=== PATIENT | female | born 1940 | race Caucasian/White ===

== ENCOUNTER 2016-08-02 09:31 | Outpatient (CLI) | payer MEDICARE, BC | END 2016-08-02 09:32 | disposition home or self-care (01) | DX: E78.5 Hyperlipidemia, unspecified (principal); E55.9 Vitamin D deficiency, unspecified; I10 Essential (primary) hypertension; E03.9 Hypothyroidism, unspecified; M17.12 Unilateral primary osteoarthritis, left knee; L40.9 Psoriasis, unspecified; R32 Unspecified urinary incontinence ==

== ENCOUNTER 2017-03-30 09:43 | Outpatient (CLI) | payer MEDICARE, BC ==
[2017-03-30 17:44] LABS: BUN - BLOOD UREA NITROGEN 15 mg/dL (6-20); CARBON DIOXIDE - CO2 27 mmol/L (21-32); CHLORIDE 104 mmol/L (101-111); CHOL/HDL RATIO 3.3 (<4.4); CHOLESTEROL 220 mg/dL; CREATININE 0.8 mg/dL (0.4-1.0); GFR - MDRD 70 (>89); GLUCOSE 82 mg/dL (70-100); HDL CHOLESTEROL 67 mg/dL; POTASSIUM 4.4 mmol/L (3.5-5.0); SODIUM 140 mmol/L (135-145); TRIGLYCERIDES 93 mg/dL; VLDL CHOLESTEROL 19 mg/dL
== END 2017-03-30 09:44 | disposition home or self-care (01) ==
LOC: LAB.F 09:43
PROVIDERS: ATTEND Internal Medicine
DX: E78.5 Hyperlipidemia, unspecified (principal); E03.9 Hypothyroidism, unspecified; I10 Essential (primary) hypertension; E55.9 Vitamin D deficiency, unspecified
CPT/HCPCS: 36415; 80048; 80061; 84443

== ENCOUNTER 2017-06-07 10:29 | Outpatient (CLI) | payer MEDICARE, OTHER ==
[2017-06-07 18:09] LABS: CHOL/HDL RATIO 1.8 (<4.4); CHOLESTEROL 128 mg/dL; HDL CHOLESTEROL 70 mg/dL; LDL CHOLESTEROL,CALCULATED 47 mg/dL; LDL/HDL RATIO 0.7 (<4.4); VLDL CHOLESTEROL 11 mg/dL
[2017-06-07 18:11] LABS: THYROID STIMULATING HORMONE 7.65 uIU/mL (0.34-5.60)
[2017-06-07 18:13] LABS: FREE T4 (FREE THYROXINE) 0.86 ng/dL (0.58-1.64)
== END 2017-06-07 10:30 | disposition home or self-care (01) ==
LOC: LAB.F 10:29
PROVIDERS: ATTEND Internal Medicine
DX: Z00.00 Encounter for general adult medical examination without abnormal findings (principal); E78.5 Hyperlipidemia, unspecified; I10 Essential (primary) hypertension; E03.9 Hypothyroidism, unspecified; M17.12 Unilateral primary osteoarthritis, left knee; L40.9 Psoriasis, unspecified; H91.90 Unspecified hearing loss, unspecified ear; R32 Unspecified urinary incontinence; E55.9 Vitamin D deficiency, unspecified
CPT/HCPCS: 36415; 80061; 84439; 84443; 84481

== ENCOUNTER 2017-09-07 10:45 | Outpatient (CLI) | payer MEDICARE, OTHER ==
--- NOTE | 2017-09-08 12:05 | Mammography Report ---
DIGITAL SCREENING MAMMOGRAM: 09/07/2017 CLINICAL INDICATION: A 76-year-old, for screening. COMPARISON: 04/2016. TECHNIQUE: Routine CC and MLO projections were obtained of the breasts. FINDINGS: The breasts demonstrate scattered fibroglandular densities bilaterally. Coarse, typically benign calcifications are present. Postoperative changes in the left axilla are stable. No suspicious masses, clustered microcalcifications or regions of architectural distortion are identified. IMPRESSION: BENIGN FINDINGS. RECOMMENDATION: ROUTINE ANNUAL SCREENING UNLESS OTHERWISE CLINICALLY INDICATED. BIRADS CATEGORY 2-BENIGN FINDINGS. STANDARD QUALIFYING STATEMENTS: 1. This examination was reviewed with the aid of Computer-Aided Detection (CAD). 2. A negative or benign imaging report should not delay biopsy if clinically suspicious findings are present. Consider surgical consultation if warranted. More than 5% of cancers are not identified by imaging. 3. Dense breasts may obscure an underlying neoplasm. TD: 09/08/2017 12:04
== END 2017-09-07 10:46 | disposition home or self-care (01) ==
LOC: DI.S 10:45
PROVIDERS: ATTEND Internal Medicine
DX: Z12.31 Encounter for screening mammogram for malignant neoplasm of breast (principal)
CPT/HCPCS: 77067

== ENCOUNTER 2017-09-14 10:51 | Outpatient (CLI) | payer MEDICARE, OTHER ==
[2017-09-14 17:52] LABS: BILIRUBIN,URINE NEGATIVE (NEGATIVE); GLUCOSE, URINE (UA) NEGATIVE (NEGATIVE); KETONES,URINE (UA) NEGATIVE (NEGATIVE); LEUKOCYTE ESTERASE, URINE SMALL (NEGATIVE); NITRITE,URINE NEGATIVE (NEGATIVE); OCCULT BLOOD,URINE MODERATE (NEGATIVE); PROTEIN,URINE 30 mg/dL (NEGATIVE); UROBILINOGEN,URINE 0.2 (NORMAL) E.U./dL (NORMAL)
[2017-09-14 18:03] LABS: CLARITY,URINE HAZY (CLEAR)
[2017-09-14 19:31] LABS: BACTERIA,URINE Moderate /HPF (None Seen); SQUAMOUS EPITHELIAL CELL,UR MOD Squamous (<= Few); WBC CLUMPS,URINE PRESENT
[2017-09-15 17:44] LABS: BASOPHILS # (AUTO) 0.1 10^3/uL (0.0-0.1); BASOPHILS % (AUTO) 1.2 %; EOSINOPHILS # (AUTO) 0.3 10^3/uL (0.0-0.7); EOSINOPHILS % (AUTO) 5.6 %; HGB - HEMOGLOBIN 11.7 g/dL (12.0-16.0); LYMPHOCYTES # (AUTO) 0.8 10^3/uL (1.5-3.5); LYMPHOCYTES % (AUTO) 14.9 %; MEAN CORPUSCULAR HEMOGLOBIN 32.6 pg (27.0-31.0); MEAN CORPUSCULAR VOLUME 98.6 fL (81.0-99.0); MEAN PLATELET VOLUME 9.4 fL (7.9-10.8); MONOCYTES # (AUTO) 0.6 10^3/uL (0.0-1.0); MONOCYTES % (AUTO) 11.5 %; NEUTROPHILS # (AUTO) 3.6 10^3/uL (1.5-6.6); NEUTROPHILS % (AUTO) 66.8 %; PLT - PLATELET COUNT 185 10^3/uL (130-450); RED CELL DISTRIBUTION WIDTH 13.3 % (12.0-15.0); WHITE BLOOD COUNT 5.3 x10^3/uL (4.8-10.8)
[2017-09-15 18:36] LABS: ALBUMIN 4.5 g/dL (3.2-5.5); ALBUMIN/GLOBULIN RATIO 1.8 (1.0-2.2); ALKALINE PHOSPHATASE 68 IU/L (42-121); ALT ALANINE AMINOTRANSFERASE 20 IU/L (10-60); AST ASPARTATE AMINOTRANSFERASE 25 IU/L (10-42); BILIRUBIN,TOTAL 0.4 mg/dL (0.2-1.0); BUN - BLOOD UREA NITROGEN 16 mg/dL (6-20); CALCIUM 9.4 mg/dL (8.5-10.3); CARBON DIOXIDE - CO2 27 mmol/L (21-32); CHLORIDE 103 mmol/L (101-111); CHOL/HDL RATIO 2.2 (<4.4); CHOLESTEROL 125 mg/dL; CREATININE 0.8 mg/dL (0.4-1.0); GFR - MDRD 70 (>89); GLUCOSE 76 mg/dL (70-100); HDL CHOLESTEROL 57 mg/dL; LDL CHOLESTEROL,CALCULATED 56 mg/dL; SODIUM 136 mmol/L (135-145); VLDL CHOLESTEROL 12 mg/dL
[2017-09-15 18:46] LABS: THYROID STIMULATING HORMONE 11.99 uIU/mL (0.34-5.60)
[2017-09-15 18:48] LABS: FREE T4 (FREE THYROXINE) 0.72 ng/dL (0.58-1.64)
== END 2017-09-14 23:59 ==
LOC: LAB.F 10:51
PROVIDERS: ATTEND Internal Medicine
DX: Z00.00 Encounter for general adult medical examination without abnormal findings (principal); N39.0 Urinary tract infection, site not specified; E78.5 Hyperlipidemia, unspecified; I10 Essential (primary) hypertension; E03.9 Hypothyroidism, unspecified; M17.12 Unilateral primary osteoarthritis, left knee; L40.9 Psoriasis, unspecified; M25.519 Pain in unspecified shoulder; R32 Unspecified urinary incontinence; E55.9 Vitamin D deficiency, unspecified; H91.90 Unspecified hearing loss, unspecified ear; R01.1 Cardiac murmur, unspecified
CPT/HCPCS: 36415; 80053; 80061; 81001; 81003; 83721; 84439; 84443; 84481; 85025; 87086

== ENCOUNTER 2017-09-15 13:19 | Outpatient (CLI) | payer MEDICARE, OTHER | END 2017-09-15 13:20 | disposition home or self-care (01) | LOC: RT.S 13:19 | PROVIDERS: ATTEND Internal Medicine | DX: Z00.00 Encounter for general adult medical examination without abnormal findings (principal); I10 Essential (primary) hypertension; N39.0 Urinary tract infection, site not specified; E78.5 Hyperlipidemia, unspecified; E03.9 Hypothyroidism, unspecified; M17.12 Unilateral primary osteoarthritis, left knee; L40.9 Psoriasis, unspecified; M25.519 Pain in unspecified shoulder; R32 Unspecified urinary incontinence; E55.9 Vitamin D deficiency, unspecified; H91.90 Unspecified hearing loss, unspecified ear; R01.1 Cardiac murmur, unspecified | CPT/HCPCS: 36415; 80053; 80061; 84439; 84443; 84481; 85025; 93005 ==

== ENCOUNTER 2018-01-25 15:05 | Outpatient (CLI) | payer MEDICARE, OTHER ==
[2018-01-25 18:21] LABS: BILIRUBIN,URINE NEGATIVE (NEGATIVE); GLUCOSE, URINE (UA) NEGATIVE (NEGATIVE); KETONES,URINE (UA) NEGATIVE (NEGATIVE); LEUKOCYTE ESTERASE, URINE SMALL (NEGATIVE); NITRITE,URINE NEGATIVE (NEGATIVE); OCCULT BLOOD,URINE NEGATIVE (NEGATIVE); PH,URINE 6.5 PH (5.0-7.5); PROTEIN,URINE NEGATIVE (NEGATIVE); UROBILINOGEN,URINE 0.2 (NORMAL) E.U./dL (NORMAL)
[2018-01-25 18:23] LABS: CLARITY,URINE CLEAR (CLEAR)
[2018-01-25 18:56] LABS: BACTERIA,URINE Moderate /HPF (None Seen); RBC,URINE None Seen /HPF (0-5); SQUAMOUS EPITHELIAL CELL,UR RARE Squamous (<= Few)
== END 2018-01-25 15:06 | disposition home or self-care (01) ==
LOC: LAB.F 15:05
PROVIDERS: ATTEND Internal Medicine
DX: R60.0 Localized edema (principal); R30.0 Dysuria; E78.5 Hyperlipidemia, unspecified; I10 Essential (primary) hypertension; E03.9 Hypothyroidism, unspecified; L40.9 Psoriasis, unspecified; M25.519 Pain in unspecified shoulder; R32 Unspecified urinary incontinence; E55.9 Vitamin D deficiency, unspecified
CPT/HCPCS: 81001; 81003; 87086

== ENCOUNTER 2018-03-20 09:59 | Outpatient (CLI) | payer MEDICARE, OTHER ==
[2018-03-20 18:25] LABS: BUN - BLOOD UREA NITROGEN 16 mg/dL (6-20); CALCIUM 9.5 mg/dL (8.5-10.3); CARBON DIOXIDE - CO2 28 mmol/L (21-32); CHLORIDE 103 mmol/L (101-111); CHOL/HDL RATIO 2.1 (<4.4); CHOLESTEROL 134 mg/dL; CREATININE 0.6 mg/dL (0.4-1.0); GFR - MDRD 97 (>89); GLUCOSE 81 mg/dL (70-100); HDL CHOLESTEROL 64 mg/dL; LDL CHOLESTEROL,CALCULATED 58 mg/dL; LDL/HDL RATIO 0.9 (<4.4); SODIUM 136 mmol/L (135-145); VLDL CHOLESTEROL 12 mg/dL
[2018-03-20 18:27] LABS: THYROID STIMULATING HORMONE 6.45 uIU/mL (0.34-5.60)
[2018-03-20 18:29] LABS: FREE T4 (FREE THYROXINE) 0.86 ng/dL (0.58-1.64)
== END 2018-03-20 10:00 | disposition home or self-care (01) ==
LOC: LAB.F 09:59
PROVIDERS: ATTEND Internal Medicine
DX: E78.5 Hyperlipidemia, unspecified (principal); L40.9 Psoriasis, unspecified; I10 Essential (primary) hypertension; E03.9 Hypothyroidism, unspecified; M25.519 Pain in unspecified shoulder; R32 Unspecified urinary incontinence; E55.9 Vitamin D deficiency, unspecified
CPT/HCPCS: 36415; 80048; 80061; 82306; 83721; 84439; 84443; 84481

== ENCOUNTER 2018-06-19 08:00 | Outpatient (CLI) | payer MEDICARE, OTHER ==
[2018-06-19 18:19] LABS: CALCIUM 9.5 mg/dL (8.5-10.3); CREATININE 0.6 mg/dL (0.4-1.0)
== END 2018-06-19 23:59 | disposition home or self-care (01) ==
LOC: LAB.F 08:00
PROVIDERS: ATTEND Internal Medicine
DX: Z00.00 Encounter for general adult medical examination without abnormal findings (principal); R30.0 Dysuria; E78.5 Hyperlipidemia, unspecified; I10 Essential (primary) hypertension; L40.9 Psoriasis, unspecified; M25.519 Pain in unspecified shoulder; R32 Unspecified urinary incontinence; E55.9 Vitamin D deficiency, unspecified
CPT/HCPCS: 36415; 80048

== ENCOUNTER 2018-09-20 13:32 | Outpatient (CLI) | payer MEDICARE, OTHER ==
--- NOTE | 2018-09-21 09:13 | Mammography Report ---
Reason: OTHER SCREENING MAMMOGRAM Procedure Date: 09/20/2018 Accession Number: [id number] / [id number] Procedure: KENNETH - Screening Mammo w/Quentin CPT Code: FULL RESULT: EXAM: Screening Mammo w/Quentin DATE: 09/20/2018 2:33 PM CLINICAL HISTORY: Screening encounter. History of left breast biopsy, excisional type with benign results. No reported risk factors. TECHNIQUE: (B) - Bilateral CC and MLO views were obtained. COMPARISON: 09/07/2017 and 04/28/2016. PARENCHYMAL PATTERN: (A) - The breast(s) demonstrate(s) scattered fibroglandular densities. FINDINGS: There are coarse typically benign calcifications. There are no suspicious masses, calcifications, or areas of distortion. IMPRESSION: Benign findings. BI-RADS category 2. RECOMMENDATION: (ANNUAL) - Recommend routine annual screening mammography. BI-RADS CATEGORY: (2) - Benign Findings. STANDARD QUALIFYING STATEMENTS: 1. This examination was not reviewed with the aid of Computer-Aided Detection (CAD). 2. A negative or benign imaging report should not preclude biopsy if clinically suspicious findings are present. 3. Dense breasts may obscure an underlying neoplasm. 4. This examination was reviewed with the aid of 3D breast imaging (tomosynthesis).
== END 2018-09-20 13:33 | disposition home or self-care (01) ==
LOC: DI 13:32
PROVIDERS: ATTEND Internal Medicine
DX: Z12.31 Encounter for screening mammogram for malignant neoplasm of breast (principal)
CPT/HCPCS: 77063; 77067

== ENCOUNTER 2019-04-17 11:24 | Outpatient (CLI) | payer MEDICARE, OTHER ==
[2019-04-17 17:18] LABS: BILIRUBIN,URINE NEGATIVE (NEGATIVE); GLUCOSE, URINE (UA) NEGATIVE (NEGATIVE); KETONES,URINE (UA) NEGATIVE (NEGATIVE); LEUKOCYTE ESTERASE, URINE SMALL (NEGATIVE); NITRITE,URINE POSITIVE (NEGATIVE); OCCULT BLOOD,URINE TRACE-INTA (NEGATIVE); PH,URINE 7.5 PH (5.0-7.5); PROTEIN,URINE NEGATIVE (NEGATIVE); UROBILINOGEN,URINE 0.2 (NORMAL) E.U./dL (NORMAL)
[2019-04-17 17:22] LABS: CLARITY,URINE HAZY (CLEAR)
[2019-04-17 17:31] LABS: BACTERIA,URINE Few /HPF (None Seen); RBC,URINE 0-5 /HPF (0-5); SQUAMOUS EPITHELIAL CELL,UR FEW Squamous (<= Few); WBC CLUMPS,URINE PRESENT
== END 2019-04-17 11:25 | disposition home or self-care (01) ==
LOC: LAB.S 11:24
PROVIDERS: ATTEND Internal Medicine
DX: R30.0 Dysuria (principal)
CPT/HCPCS: 81001; 81003; 87086

== ENCOUNTER 2019-05-19 12:05 | Emergency (ER) | payer MEDICARE, OTHER ==
--- NOTE | 2019-05-19 14:57 | ED Physician Documentation ---
PD HPI FEMALE - Stated complaint Stated Complaint: FEMALE - Chief complaint Chief Complaint: UTI - History obtained from History obtained from: Patient - History of Present Illness Timing - onset: How many days ago (2) Timing - duration: Days (2) Timing - details: Gradual onset, Still present Associated symptoms: Dysuria, Urinary frequency Similar symptoms before: Diagnosis (UTI) Recently seen: Surgery - Additional information Additional information: 78-year-old female has had a bladder sling placed last week and she has developed some urinary urgency frequency and dysuria consistent with bladder infection. She states that she had a bladder catheter in place for 2 days following the surgery and this was extracted and she is been off of her Septra for 3 days. Review of Systems Constitutional: denies: Fever, Chills Nose: denies: Congestion Throat: denies: Sore throat Respiratory: denies: Cough GI: reports: Nausea. denies: Abdominal Pain, Vomiting : reports: Dysuria, Frequency Skin: denies: Rash Musculoskeletal: denies: Neck pain, Back pain, Extremity pain Neurologic: denies: Generalized weakness, Focal weakness, Numbness PD PAST MEDICAL HISTORY - Past Medical History Past Medical History: Yes Cardiovascular: Hypertension Respiratory: None Neuro: None Endocrine/Autoimmune: None GI: None FURNITURE SALESPERSON: None : Frequency HEENT: None Psych: None Musculoskeletal: None Derm: None - Past Surgical History Past Surgical History: Yes Ortho: Knee replacement, Shoulder arthroplasty - Present Medications Home Medications: Ambulatory Orders Medication Instructions Recorded Confirmed Azithromycin [Zithromax] 250 mg PO DAILY #4 tablet 05/11/14 Blood Pressure Med 05/11/14 05/11/14 Levothyroxine Sodium [Levoxyl] 05/11/14 05/11/14 Liothyronine Sodium [Cytomel] 05/11/14 05/11/14 guaiFENesin/CODEINE [Robitussin AC] 5 - 10 ml PO Q6H PRN #120 ml 05/11/14 Sulfamethoxazole/Trimethoprim 1 each PO BID #14 tablet 05/19/19 [Sulfamethoxazole-Tmp Ds Tablet] - Allergies Allergies/Adverse Reactions: Allergies Allergy/AdvReac Type Severity Reaction Status Date / Time meperidine HCl * AdvReac Anaphylaxis Verified 05/19/19 12:11 [From [facility]] - Social History Does the pt smoke?: No Smoking Status: Never smoker Does the pt drink ETOH?: No Does the pt have substance abuse?: No - Immunizations Immunizations are current?: Yes - POLST Patient has POLST: No PD ED PE NORMAL - Vitals Vital signs reviewed: Yes (hypertensive mild ) - General General: Alert and oriented X 3, No acute distress, Well developed/nourished - HEENT HEENT: Atraumatic, PERRL, EOMI - Neck Neck: Supple, no meningeal sign - Cardiac Cardiac: RRR, No murmur - Respiratory Respiratory: No respiratory distress, Clear bilaterally - Abdomen Abdomen: Soft, Other (minimal suprapubic tenderness.) - Back Back: No CVA TTP, No spinal TTP - Derm Derm: Normal color, Warm and dry, No rash - Extremities Extremities: No deformity, No edema - Neuro Neuro: Alert and oriented X 3, 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, No motor deficit, No sensory deficit, Normal speech Eye Opening: Spontaneous Motor: Obeys Commands Verbal: Oriented GCS Score: 15 - Psych Psych: Normal mood, Normal affect Results - Vitals Vitals: Vital Signs - 24 hr 05/19/19 05/19/19 12:11 15:24 Temperature 36.6 C 36.7 C Heart Rate 64 65 Respiratory 14 16 Rate Blood Pressure 145/71 H 174/64 H O2 Saturation 100 100 Oxygen O2 Source Room air - Labs Labs: Laboratory Tests 05/19/19 13:55 Urine Color YELLOW Urine Clarity CLOUDY Urine pH 6.5 Ur Specific [place] <=1.005 Urine Protein NEGATIVE Urine Glucose (UA) NEGATIVE Urine Ketones NEGATIVE Urine Occult Blood LARGE H Urine Nitrite NEGATIVE Urine Bilirubin NEGATIVE Urine Urobilinogen 0.2 (NORMAL) Ur Leukocyte Esterase SMALL H Urine RBC 11-25 H Urine WBC >25 H Ur Squamous Epith Cells NONE SEEN Urine Bacteria Few Ur Microscopic Review INDICATED Urine Culture Comments INDICATED PD MEDICAL DECISION MAKING - ED course Complexity details: reviewed results, re-evaluated patient, considered differential, d/w patient ED course: 78-year-old female with a recent placement of a bladder sling has developed urinary tract infection and we will place her back on to the Jan. Departure - Departure Disposition: Home, Self Care Clinical Impression: Urinary tract infection Qualifiers: Urinary tract infection type: acute cystitis Hematuria presence: without hematuria Qualified Code(s): N30.00 - Acute cystitis without hematuria Condition: Stable Instructions: ED UTI Cystitis Female Follow-Up: Anurag Shipley MD [Primary Care Provider] - Prescriptions: Sulfamethoxazole/Trimethoprim [Sulfamethoxazole-Tmp Ds Tablet] 1 each PO BID #14 tablet Discharge Date/Time: 05/19/19 15:31
[2019-05-19 15:02] LABS: BILIRUBIN,URINE NEGATIVE (NEGATIVE); GLUCOSE, URINE (UA) NEGATIVE (NEGATIVE); KETONES,URINE (UA) NEGATIVE (NEGATIVE); LEUKOCYTE ESTERASE, URINE SMALL (NEGATIVE); NITRITE,URINE NEGATIVE (NEGATIVE); OCCULT BLOOD,URINE LARGE (NEGATIVE); PH,URINE 6.5 PH (5.0-7.5); PROTEIN,URINE NEGATIVE (NEGATIVE); UROBILINOGEN,URINE 0.2 (NORMAL) E.U./dL (NORMAL)
[2019-05-19 15:07] LABS: CLARITY,URINE CLOUDY (CLEAR)
[2019-05-19 15:25] VITALS: BP 174/64
[2019-05-19 15:52] LABS: SQUAMOUS EPITHELIAL CELL,UR NONE SEEN (<= Few)
[2019-05-19 15:53] LABS: BACTERIA,URINE Few /HPF (None Seen)
== END 2019-05-19 15:31 | disposition home or self-care (01) ==
LOC: ED 12:05
DX: N30.00 Acute cystitis without hematuria (principal); Z98.890 Other specified postprocedural states; I10 Essential (primary) hypertension
CPT/HCPCS: 81001; 81003; 87086; 87181; 99283; 99284

== ENCOUNTER 2019-11-27 11:00 | Outpatient (CLI) | payer MEDICARE, OTHER ==
--- NOTE | 2019-11-28 11:12 | Mammography Report ---
BILATERAL DIGITAL SCREENING MAMMOGRAM 3D/2D: 11/27/2019 CLINICAL: Routine screening. Mammograms 09/20/2018, 09/07/2017, 04/28/2016. There are scattered fibroglandular elements in both sher sts. No significant masses, calcifications, or other findings are seen in either breast. IMPRESSION: NEGATIVE There is no mammographic evidence of malignancy. A 1 year screening mammogram is recommended. This exam was interpreted at Station ID: [id number]. NOTE: For mammograms, a report in lay terms will be sent to the patient. Approximately 15% of breast malignancies will not be visualized mammographically. In the management of a palpable breast mass, a negative mammogram must not discourage biopsy of a clinically suspicious lesion. Electronically Signed By: Zak Munroe M.D. slc/:11/28/2019 08:27:56 ACR BI-RADS Category 1: Negative 3341F PARENCHYMAL PATTERN: (A) - The breast(s) demonstrate(s) scattered fibroglandular densities. BI-RADS CATEGORY: (1) - 1 RECOMMENDATION: (ANNUAL) - Recommend routine annual screening mammography. [id number] 1 year screening LATERALITY: (B)
== END 2019-11-27 11:01 | disposition home or self-care (01) ==
LOC: DI 11:00
PROVIDERS: ATTEND Internal Medicine
DX: Z12.31 Encounter for screening mammogram for malignant neoplasm of breast (principal)
CPT/HCPCS: 77063; 77067

== ENCOUNTER 2020-03-27 09:35 | Outpatient (CLI) | payer MEDICARE, OTHER ==
[2020-03-27 15:23] LABS: ALBUMIN 4.4 g/dL (3.2-5.5); ALBUMIN/GLOBULIN RATIO 1.7 (1.0-2.2); ALKALINE PHOSPHATASE 85 IU/L (42-121); ALT ALANINE AMINOTRANSFERASE 19 IU/L (10-60); AST ASPARTATE AMINOTRANSFERASE 26 IU/L (10-42); BILIRUBIN,TOTAL 0.5 mg/dL (0.2-1.0); BUN - BLOOD UREA NITROGEN 17 mg/dL (6-20); CALCIUM 9.7 mg/dL (8.5-10.3); CARBON DIOXIDE - CO2 25 mmol/L (21-32); CHLORIDE 103 mmol/L (101-111); CHOL/HDL RATIO 1.9 (<4.4); CHOLESTEROL 132 mg/dL; CREATININE 0.7 mg/dL (0.4-1.0); GLUCOSE 86 mg/dL (70-100); HDL CHOLESTEROL 70 mg/dL; LDL CHOLESTEROL,CALCULATED 54 mg/dL; LDL/HDL RATIO 0.8 (<4.4); SODIUM 135 mmol/L (135-145); VLDL CHOLESTEROL 8 mg/dL
[2020-03-27 15:38] LABS: THYROID STIMULATING HORMONE 4.09 uIU/mL (0.34-5.60)
[2020-03-27 15:39] LABS: FREE T3 2.43 pg/mL (2.5-3.9)
[2020-03-27 15:40] LABS: FREE T4 (FREE THYROXINE) 0.98 ng/dL (0.58-1.64)
== END 2020-03-27 09:36 | disposition home or self-care (01) ==
LOC: LAB.S 09:35
PROVIDERS: ATTEND Internal Medicine
DX: Z00.00 Encounter for general adult medical examination without abnormal findings (principal); E78.5 Hyperlipidemia, unspecified; I10 Essential (primary) hypertension; E03.9 Hypothyroidism, unspecified; E55.9 Vitamin D deficiency, unspecified; L40.9 Psoriasis, unspecified; M25.519 Pain in unspecified shoulder; R32 Unspecified urinary incontinence
CPT/HCPCS: 36415; 80053; 80061; 82306; 83721; 84439; 84443; 84481

== ENCOUNTER 2020-06-26 12:13 | Outpatient (CLI) | payer MEDICARE, OTHER ==
[2020-06-26 14:47] LABS: BASOPHILS # (AUTO) 0.1 10^3/uL (0.0-0.1); EOSINOPHILS # (AUTO) 0.2 10^3/uL (0.0-0.7); HGB - HEMOGLOBIN 11.4 g/dL (12.0-16.0); LYMPHOCYTES # (AUTO) 1.3 10^3/uL (1.5-3.5); LYMPHOCYTES % (AUTO) 26.2 %; MEAN CORPUSCULAR HEMOGLOBIN 32.6 pg (27.0-31.0); MEAN CORPUSCULAR HGB CONC 31.8 g/dL (32.0-36.0); MEAN CORPUSCULAR VOLUME 102.3 fL (81.0-99.0); MEAN PLATELET VOLUME 11.1 fL (7.9-10.8); MONOCYTES # (AUTO) 0.6 10^3/uL (0.0-1.0); MONOCYTES % (AUTO) 12.3 %; NEUTROPHILS # (AUTO) 2.9 10^3/uL (1.5-6.6); NEUTROPHILS % (AUTO) 57.3 %; PLT - PLATELET COUNT 186 10^3/uL (130-450); RED CELL DISTRIBUTION WIDTH 12.7 % (12.0-15.0)
[2020-06-26 15:34] LABS: ALBUMIN 4.6 g/dL (3.2-5.5); ALBUMIN/GLOBULIN RATIO 2.2 (1.0-2.2); BILIRUBIN,TOTAL 0.7 mg/dL (0.2-1.0); CALCIUM 9.8 mg/dL (8.5-10.3); CREATININE 0.7 mg/dL (0.4-1.0); TOTAL PROTEIN 6.7 g/dL (6.7-8.2)
== END 2020-06-26 12:14 | disposition home or self-care (01) ==
LOC: LAB.S 12:13
PROVIDERS: ATTEND Internal Medicine
DX: I10 Essential (primary) hypertension (principal); R60.0 Localized edema
CPT/HCPCS: 36415; 80053; 85025

== ENCOUNTER 2020-07-06 15:22 | Outpatient (CLI) | payer MEDICARE, OTHER | END 2020-07-06 15:23 | disposition home or self-care (01) | LOC: RT 15:22 | PROVIDERS: ATTEND Internal Medicine | DX: E78.5 Hyperlipidemia, unspecified (principal) | CPT/HCPCS: 93005 ==

== ENCOUNTER 2021-03-26 10:16 | Outpatient (CLI) | payer MEDICARE, OTHER ==
[2021-03-26 15:54] LABS: THYROID STIMULATING HORMONE 9.71 uIU/mL (0.34-5.60)
[2021-03-26 15:56] LABS: FREE T3 2.67 pg/mL (2.5-3.9); FREE T4 (FREE THYROXINE) 0.87 ng/dL (0.58-1.64)
[2021-03-26 16:01] LABS: BUN - BLOOD UREA NITROGEN 20 mg/dL (6-20); CALCIUM 9.8 mg/dL (8.5-10.3); CARBON DIOXIDE - CO2 26 mmol/L (21-32); CHLORIDE 104 mmol/L (101-111); CHOLESTEROL 138 mg/dL; CREATININE 0.7 mg/dL (0.4-1.0); GFR - MDRD 80 (>89); GLUCOSE 87 mg/dL (70-100); HDL CHOLESTEROL 69 mg/dL; LDL CHOLESTEROL,CALCULATED 59 mg/dL; LDL/HDL RATIO 0.9 (<4.4); POTASSIUM 4.2 mmol/L (3.5-5.0); SODIUM 138 mmol/L (135-145); TRIGLYCERIDES 50 mg/dL; VLDL CHOLESTEROL 10 mg/dL
== END 2021-03-26 10:17 | disposition home or self-care (01) ==
LOC: LAB.S 10:16
PROVIDERS: ATTEND Internal Medicine
DX: J30.9 Allergic rhinitis, unspecified (principal); E78.5 Hyperlipidemia, unspecified; I10 Essential (primary) hypertension; E03.9 Hypothyroidism, unspecified; E55.9 Vitamin D deficiency, unspecified
CPT/HCPCS: 36415; 80048; 80061; 82306; 83721; 84439; 84443; 84481

== ENCOUNTER 2021-06-06 08:00 | Outpatient (CLI) | payer MEDICARE, OTHER ==
[2021-06-06 18:17] LABS: BILIRUBIN,URINE NEGATIVE (NEGATIVE); GLUCOSE, URINE (UA) NEGATIVE (NEGATIVE); KETONES,URINE (UA) NEGATIVE (NEGATIVE); LEUKOCYTE ESTERASE, URINE SMALL (NEGATIVE); NITRITE,URINE POSITIVE (NEGATIVE); OCCULT BLOOD,URINE TRACE-LYSE (NEGATIVE); PH,URINE 6.5 PH (5.0-7.5); PROTEIN,URINE NEGATIVE (NEGATIVE); UROBILINOGEN,URINE 0.2 (NORMAL) E.U./dL (NORMAL)
[2021-06-06 18:21] LABS: CLARITY,URINE HAZY (CLEAR)
[2021-06-06 18:33] LABS: BACTERIA,URINE Moderate /HPF (None Seen); RBC,URINE 0-5 /HPF (0-5); SQUAMOUS EPITHELIAL CELL,UR FEW Squamous (<= Few); WBC,URINE >25 /HPF (0-5)
[2021-06-06 18:36] LABS: MUCUS,URINE Few Strands
== END 2021-06-06 23:59 ==
LOC: LAB.S 08:00
PROVIDERS: ATTEND Emergency Medicine
DX: N39.0 Urinary tract infection, site not specified (principal)
CPT/HCPCS: 81001; 87086; 87181

== ENCOUNTER 2021-06-08 12:13 | Outpatient (CLI) | payer MEDICARE, OTHER ==
--- NOTE | 2021-06-08 16:46 | DEXA Report ---
PROCEDURE: Dexa Spine and/or Hip INDICATIONS: NORMAL MENOPAUSE TECHNIQUE: Dual energy x-ray absorptiometry (DXA) was performed on a [employer] System. Regions measur ed are the AP Spine, femoral neck, and if needed forearm. COMPARISON: None. FINDINGS: Lumbar Spine: Bone Mineral Density 0.929 g/cm/cm,T score -2.1. Left Hip: Bone Mineral Density 0.657 g/cm/cm,T score -2.8. Left Femoral Neck: Bone Mineral Density 0.722 g/cm/cm, T score -2.3. (T score greater or equal to -1.0: NORMAL) (T score from -1.1 to -2.4: OSTEOPENIA) (T score less than or equal to -2.5 to: OSTEOPOROSIS) Impression: Osteoporosis. Patients with diagnosis of osteoporosis or osteopenia should have regular bone mineral density assess ment. For those eligible for Medicare, routine testing is allowed once every 2 years. Testing frequ ency can be increased for patients who have rapidly progressing disease or for those who are receivin g medical therapy to restore bone mass. Reviewed by: Haseeb Bello MD on 06/08/2021 4:44 PM PST Approved by: Haseeb Bello MD on 06/08/2021 4:44 PM PST Station ID: [id number]
== END 2021-06-08 12:14 | disposition home or self-care (01) ==
LOC: DI 12:13
PROVIDERS: ATTEND Internal Medicine
DX: Z78.0 Asymptomatic menopausal state (principal); M81.0 Age-related osteoporosis without current pathological fracture

== ENCOUNTER 2021-06-08 12:14 | Outpatient (CLI) | payer MEDICARE, OTHER ==
--- NOTE | 2021-06-09 16:08 | Mammography Report ---
BILATERAL DIGITAL SCREENING MAMMOGRAM 3D/2D: 06/08/2021 CLINICAL: Routine screening. Comparison is made to exams dated: 11/27/2019 mammogram, 09/20/2018 mammogram, 09/07/2017 mammogram, and 04/28/2016 mammogram - [facility]. There are scattered fibroglandular elements in both breasts. There are linear calcifications in the right breast at 12 o'clock posterior depth. No other significant masses, calcifications, or other findings are seen in either breast. IMPRESSION: INCOMPLETE: NEEDS ADDITIONAL IMAGING EVALUATION The linear calcifications in the right breast are indeterminate. Spot magnification and lateral view s are recommended. This exam was interpreted at Station ID: [id number]. NOTE: For mammograms, a report in lay terms will be sent to the patient. Approximately 15% of breast malignancies will not be visualized mammographically. In the management of a palpable breast mass, a negative mammogram must not discourage biopsy of a clinically suspicious lesion. Electronically Signed By: Lovely pineda/cecily:06/08/2021 16:34:00 ACR BI-RADS Category 0: Incomplete 3340F PARENCHYMAL PATTERN: (A) - The breast(s) demonstrate(s) scattered fibroglandular densities. BI-RADS CATEGORY: (0) - 0 RECOMMENDATION: (ADDMAM) - Recommend additional mammographic views. [id number] Immediate follow-up LATERALITY: (B)
== END 2021-06-08 12:15 | disposition home or self-care (01) ==
LOC: DI 12:14
PROVIDERS: ATTEND Internal Medicine
DX: Z12.31 Encounter for screening mammogram for malignant neoplasm of breast (principal); R92.1 Mammographic calcification found on diagnostic imaging of breast

== ENCOUNTER 2022-07-04 11:54 | Outpatient (CLI) | payer MEDICARE, OTHER ==
[2022-07-04 14:47] LABS: THYROID STIMULATING HORMONE 4.19 uIU/mL (0.34-5.60)
[2022-07-04 14:48] LABS: FREE T3 2.19 pg/mL (2.5-3.9)
[2022-07-04 14:49] LABS: FREE T4 (FREE THYROXINE) 0.96 ng/dL (0.58-1.64)
[2022-07-05 17:49] LABS: BUN - BLOOD UREA NITROGEN 18 mg/dL (6-20); CALCIUM 9.9 mg/dL (8.5-10.3); CARBON DIOXIDE - CO2 23 mmol/L (21-32); CHLORIDE 101 mmol/L (101-111); CHOL/HDL RATIO 1.8 (<4.4); CHOLESTEROL 135 mg/dL; CREATININE 0.8 mg/dL (0.4-1.0); GFR - MDRD 69 (>89); GLUCOSE 78 mg/dL (70-100); HDL CHOLESTEROL 76 mg/dL; POTASSIUM 5.1 mmol/L (3.5-5.0); SODIUM 135 mmol/L (135-145); TRIGLYCERIDES 35 mg/dL
== END 2022-07-04 11:55 | disposition home or self-care (01) ==
LOC: LAB.S 11:54
PROVIDERS: ATTEND Internal Medicine
DX: I10 Essential (primary) hypertension (principal); E78.5 Hyperlipidemia, unspecified; E03.9 Hypothyroidism, unspecified; M81.0 Age-related osteoporosis without current pathological fracture; E55.9 Vitamin D deficiency, unspecified
CPT/HCPCS: 36415; 80048; 80061; 82306; 83721; 84439; 84443; 84481

== ENCOUNTER 2022-08-16 10:46 | Outpatient (CLI) | payer MEDICARE, OTHER ==
--- NOTE | 2022-08-16 15:32 | XRAY Report ---
PROCEDURE: Hip w/Pelvis 2-3V LT INDICATIONS: LEFT HIP AND KNEE PAIN TECHNIQUE: AP pelvis with lateral view(s) of the left hip(s). COMPARISON: None. FINDINGS: Bones: No fractures or dislocations. Pelvic ring appears intact. No suspicious bony lesions. Poss ible mild facet degenerative changes bilaterally. Soft tissues: The visualized bowel gas pattern is normal. No suspicious soft tissue calcifications. IMPRESSION: No acute fracture or dislocation identified. Possible mild degenerative changes of both hips. If symptoms persist, follow-up radiographs and/or CT or MRI may be helpful for further evaluati on. Reviewed by: Kye Maritnez MD on 08/16/2022 3:31 PM PDT Approved by: Kye Martinez MD on 08/16/2022 3:31 PM PDT Station ID: [id number]
--- NOTE | 2022-08-16 15:34 | XRAY Report ---
PROCEDURE: Knee 3 View LT INDICATIONS: LEFT HIP AND KNEE PAIN TECHNIQUE: 3 views of the left knee(s) were acquired. COMPARISON: None. FINDINGS: Bones: Postsurgical changes from left knee arthroplasty. Hardware appears intact. No acute fracture or dislocation identified. Soft tissues: No definite joint effusion. No suspicious soft tissue calcifications. IMPRESSION: Postsurgical changes from left knee arthroplasty. No definite acute osseous abnormality. If symptoms persist, follow-up radiographs and/or CT may be helpful for further evaluation. Reviewed by: Key Martinez MD on 08/16/2022 3:33 PM PDT Approved by: Kye Martinez MD on 08/16/2022 3:33 PM PDT Station ID: [id number]
== END 2022-08-16 10:47 | disposition home or self-care (01) ==
LOC: DI 10:46
PROVIDERS: ATTEND Internal Medicine
DX: M25.552 Pain in left hip (principal); M25.562 Pain in left knee; Z96.652 Presence of left artificial knee joint

== ENCOUNTER 2023-06-27 10:51 | Outpatient (CLI) | payer MEDICARE, OTHER ==
--- NOTE | 2023-06-27 17:14 | DEXA Report ---
PROCEDURE: Dexa Spine and/or Hip INDICATIONS: POST MENOPAUSAL TECHNIQUE: Dual energy x-ray absorptiometry (DXA) was performed on a [employer] System. Regions measur ed are the AP Spine, femoral neck, and if needed forearm. COMPARISON: DEXA 06/08/2021 FINDINGS: Lumbar Spine: Bone Mineral Density: 1.078 g/cm/cm,T score: -0.9, compared to -2.1. Left Femoral Neck: Bone Mineral Density: 0.75 non- g/cm/cm, T score: -2.0, compared to -2.3. Left Hip: Bone Mineral Density: 0.686 g/cm/cm,T score: -2.6, compared to -2.8. (T score greater or equal to -1.0: NORMAL) (T score from -1.1 to -2.4: OSTEOPENIA) (T score less than or equal to -2.5 to: OSTEOPOROSIS) Impression: By WHO criteria, this patient has osteoporosis in the left hip and osteopenia within the left femoral neck. Bone mineral densities are improved overall compared to prior exam. Patients with diagnosis of osteoporosis or osteopenia should have regular bone mineral density assess ment. For those eligible for Medicare, routine testing is allowed once every 2 years. Testing frequ ency can be increased for patients who have rapidly progressing disease or for those who are receivin g medical therapy to restore bone mass. Reviewed by: Shirley Seaman MD on 06/27/2023 5:12 PM PST Approved by: Shirley Seaman MD on 06/27/2023 5:12 PM PST Station ID: [id number]
== END 2023-06-27 10:52 | disposition home or self-care (01) ==
LOC: DI 10:51
PROVIDERS: ATTEND Internal Medicine Hematology & Oncology
DX: Z78.0 Asymptomatic menopausal state (principal); C50.111 Malignant neoplasm of central portion of right female breast; Z17.0 Estrogen receptor positive status [ER+]; M81.0 Age-related osteoporosis without current pathological fracture

== ENCOUNTER 2023-08-08 20:03 | Emergency (ER) | payer MEDICARE, OTHER ==
[2023-08-08 20:30] VITALS: O2SAT 98
--- NOTE | 2023-08-08 23:10 | ED Physician Documentation ---
PD HPI WOUND RECHECK - Stated complaint Stated Complaint: POST OP COMPLICATION - Chief complaint Chief Complaint: General - Histroy obtained from History obtained from: Patient - History of Present Illness Location: Chest (right breast area. Had mastectomy done here with drain and dressing in place. She states the dressing over the drain came off unintentionally when she took off the cover dressing over that. Did not have right supplies at home. Here for dressing/wound check.) PD PAST MEDICAL HISTORY - Past Medical History Cardiovascular: Hypertension Respiratory: None Neuro: None Endocrine/Autoimmune: None GI: None B2B SALES EXECUTIVE: None : Frequency HEENT: None Psych: None Musculoskeletal: None Derm: None - Past Surgical History Past Surgical History: Yes Ortho: Knee replacement, Shoulder arthroplasty - Present Medications Home Medications: Ambulatory Orders Medication Instructions Recorded Confirmed Azithromycin [Zithromax] 250 mg PO DAILY #4 tablet 05/11/14 Blood Pressure Med 05/11/14 05/11/14 Levothyroxine Sodium [Levoxyl] 05/11/14 05/11/14 Liothyronine Sodium [Cytomel] 05/11/14 05/11/14 guaiFENesin/CODEINE [Robitussin AC] 5 - 10 ml PO Q6H PRN #120 ml 05/11/14 Sulfamethoxazole/Trimethoprim 1 each PO BID #14 tablet 05/19/19 [Sulfamethoxazole-Tmp Ds Tablet] - Allergies Allergies/Adverse Reactions: Allergies Allergy/AdvReac Type Severity Reaction Status Date / Time meperidine HCl * AdvReac Anaphylaxis Verified 08/08/23 20:18 [From Demerol] - Social History Does the pt smoke?: No Smoking Status: Never smoker Does the pt drink ETOH?: No Does the pt have substance abuse?: No - Immunizations Immunizations are current?: Yes - POLST Patient has POLST: No PD ED PE NORMAL - Vitals Vital signs reviewed: Yes - General General: Alert and oriented X 3, No acute distress, Well developed/nourished - Derm Derm: Normal color, Warm and dry, Other (rigth chest wall anteriorly with drain out to suction bulb. No redness nor signs of infection. Drain suture intact. Dressing placed by nursing. ) Results - Vitals Vitals: Oxygen O2 Source Room air PD Medical Decision Making - ED course Complexity details: considered differential (she had dressing come off that is over drain/surgical site. Did not have those supplies at home. Here for dressing. Wound appears okay without signs of infection. Dressing by nursing. ), d/w patient Departure - Departure Disposition: 01 Home, Self Care Clinical Impression: Encounter for change of dressing Condition: Stable Record reviewed to determine appropriate education?: Yes Comments: Follow-up with your surgeon as directed by them. Continue wound care as you have been instructed previously postoperative. Return if problems. Forms: PCP List Discharge Date/Time: 08/08/23 23:23
[2023-08-08 23:25] VITALS: BP 140/68
== END 2023-08-08 23:23 | disposition home or self-care (01) ==
LOC: ED 20:03
DX: Z48.03 Encounter for change or removal of drains (principal); I10 Essential (primary) hypertension
CPT/HCPCS: 99282

== ENCOUNTER 2023-09-18 09:08 | Outpatient (CLI) | payer MEDICARE, OTHER ==
[2023-09-18 15:16] LABS: CALCIUM 10.3 mg/dL (8.5-10.3); CREATININE 0.8 mg/dL (0.6-1.3); POTASSIUM 4.7 mmol/L (3.5-4.5)
[2023-09-18 15:19] LABS: THYROID STIMULATING HORMONE 16.21 uIU/mL (0.34-5.60)
== END 2023-09-18 09:09 | disposition home or self-care (01) ==
LOC: LAB.S 09:08
PROVIDERS: ATTEND Internal Medicine
DX: I10 Essential (primary) hypertension (principal); E03.9 Hypothyroidism, unspecified
CPT/HCPCS: 36415; 80048; 84439; 84443; 84481

== ENCOUNTER 2023-12-09 07:00 | Outpatient (CLI) | payer MEDICARE, OTHER | END 2023-12-09 23:59 | disposition home or self-care (01) | LOC: LAB.S 07:00 | PROVIDERS: ATTEND Nurse Practitioner | DX: N39.0 Urinary tract infection, site not specified (principal) | CPT/HCPCS: 87086 ==

== ENCOUNTER 2024-01-18 08:22 | Day surgery (SDC) | payer MEDICARE, OTHER ==
[2024-01-18] MEDS: PROPARACAINE 0.5% OPHTH DROPS 15 ML ONE (08:50)
[2024-01-18] MEDS: KETOROLAC TROMETHAMINE 0.5% OPHTH DROPS 5 ML ONE (08:50)
[2024-01-18] MEDS: CYCLOPENTOLATE 1% OPHTH DROPS 2 ML ONE (08:52)
[2024-01-18] MEDS: PHENYLEPHRINE 2.5% OPHTH 2 ML DROPS ONE (08:52)
[2024-01-18] MEDS: LACTATED RINGERS 1,000 ML IV ONE ×2 (09:05→10:49)
--- NOTE | 2024-01-18 09:43 | ANESTHESIA ---
Pre-Anesthesia VS, & Labs - Diagnosis L cataract - Procedure L phacoIOL Vital Signs: Temp Pulse Resp BP Pulse Ox O2 Flow Rate 36.5 C 55 L 14 159/65 H 98 01/18/24 08:46 01/18/24 08:46 01/18/24 08:46 01/18/24 08:46 01/18/24 08:46 Height: 5 ft 3 in Weight (kg): 76.3 kg Body Mass Index: 29.7 BMI Classification: Overweight - NPO >8 hours - Is Patient ?: No Home Medications and Allergies Home Medications: Ambulatory Orders Alendronate [Fosamax] 70 mg PO OAW 01/17/24 Lisinopril [Zestril] 10 mg PO HS 01/17/24 estradioL [Estring] 1 each VG ONCE 01/17/24 Levothyroxine Sodium [Levoxyl] 75 mg PO DAILY 05/11/14 Alendronate [Fosamax] 70 mg PO OAW 01/17/24 Lisinopril [Zestril] 10 mg PO HS 01/17/24 estradioL [Estring] 1 each VG ONCE 01/17/24 Allergies/Adverse Reactions: Allergies Allergy/AdvReac Type Severity Reaction Status Date / Time meperidine HCl * AdvReac Anaphylaxis Verified 08/08/23 20:18 [From Demerol] Anes History & Medical History - Anesthetic History Anesthesia Complications: reports: Post-Operative Nausea/Vomiting Family history of Anesthesia Complications: Denies Family history of Malignant Hyperthermia: Denies - Medical History Cardiovascular: reports: Hypertension Pulmonary: reports: None Gastrointestinal: reports: None Urinary: reports: Frequency Neuro: reports: None Musculoskeletal: reports: None Endocrine/Autoimmune: reports: None Blood Disorders: reports: None Skin: reports: None Smoking Status: Never smoker Psychosocial: reports: Anxiety - Surgical History Urologic: reports: Bladder surgery Orthopedic: reports: Knee replacement, Shoulder arthroplasty Exam General: Alert, Oriented x3, Cooperative Dental: WNL Mouth Openin Fingerbreadth Neck Mobility: Normal Mallampati classification: II Thyromental Distance: 4-6 cm Respiratory: Lungs clear Cardiovascular: Regular rate Plan Anesthesia Type: MAC Consent for Procedure(s) Verified and Reviewed: Yes Code Status: Attempt Resuscitation ASA classification: 2-Mild systemic disease Is this case an emergency?: No
[2024-01-18] MEDS ORDERED: fentaNYL 100 MCG/2 ML VIAL ONE (09:58)
[2024-01-18] MEDS ORDERED: MIDAZOLAM 2 MG/2 ML VIAL ONE (09:58)
[2024-01-18] MEDS ORDERED: ONDANSETRON 4 MG/2 ML VIAL ONE (10:00)
[2024-01-18] MEDS ORDERED: BRIMONIDINE 0.2% OPHTH DROPS 5 ML ONE (10:10)
[2024-01-18] MEDS ORDERED: TRIAMCIN/MOXIFLOX OPHTHALMIC 0.6 ML VIAL IO ONE (10:10)
[2024-01-18] MEDS ORDERED: BSS/LIDOCAINE/EPINEPHRINE 1 ML VIAL ONE (10:10)
[2024-01-18] MEDS ORDERED: TIMOLOL 0.5% OPHTH DROPS ONE (10:10)
[2024-01-18] MEDS ORDERED: EPINEPHrine 1 MG/ML AMP ONE (10:10)
[2024-01-18] MEDS: BRIMONIDINE 0.2% OPHTH DROPS 5 ML OPTH ONE (10:14)
[2024-01-18] MEDS: BSS/LIDOCAINE/EPINEPHRINE 1 ML SYRINGE IO ONE (10:15)
[2024-01-18] MEDS: TIMOLOL 0.5% OPHTH DROPS OPTH ONE (10:15)
[2024-01-18] MEDS: EPINEPHrine 1 MG/ML AMP IR ONE (10:15)
[2024-01-18] MEDS: TRIAMCIN/MOXIFLOX OPHTHALMIC 0.6 ML VIAL IO ONE (10:15)
[2024-01-18] MEDS: PROPARACAINE 0.5% OPHTH DROPS 15 ML EACHEYE ONE (10:16)
[2024-01-18] MEDS: VANCOMYCIN OPHTH (TOPICAL) 10 MG/ML SYRINGE TOP ONE (10:16)
--- NOTE | 2024-01-18 10:58 | OPERATIVE REPORT ---
Operative Report - Other Other Information/Narrative: Date of Surgery: 01/18/24 Preop Dx: Visually significant cataract left eye. This was the first cataract surgery. Postop Dx: Same Procedure: Phacoemulsification with posterior chamber toric intraocular lens implant left eye Surgeon: Dr. 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 Best corrected visual acuity was 20/25 with glare to 20/125 vision in the left eye. Indications for surgery were: - Overall decrease in vision - Difficulty seeing street signs - Difficulty driving in low light or at night - Difficulty with glare or bright lights in any situation The patient was consented at length concerning the risks and benefits of cataract surgery after which the patient expressed a desire to proceed with surgery. Operative Procedure: The patients cornea was marked in the pre-surgical area to indicate the axis for the toric intraocular lens. The patient was taken into OR#3 and placed under monitored anesthesia care. A surgical time-out was conducted confirming correct patient, correct procedure, and correct surgical site. The patient was given topical anesthesia and then prepped and draped in the usual sterile fashion. The eye was entered at the 6 and 3 oclock positions. Intracameral Shugarcaine was injected into the anterior chamber followed by a dispersive viscoelastic. A continuous-tear curvilinear capsulorhexis was performed. The nucleus was hydrodissected and phacoemulsified. The cortex was evacuated using automated infusion and aspiration. A cohesive viscoelastic was injected into the capsular bag and a 20.5 diopter toric multifocal intraocular lens was inserted into the bag and rotated to axis 001. Infusion and aspiration were used to evacuate the viscoelastic materials from the eye and the IOL was verified to remain on axis. The wounds were hydrated and the eye inflated to physiologic pressure using balanced salt solution. Approximately 0.25ml of a mixture of triamcinolone and moxifloxacin was injected trans-sclerally into the vitreous in the inferotemporal quadrant using a 30 gauge cannula. An additional 0.25ml of a mixture of triamcinolone and moxifloxacin was injected subconjunctivally in the superior quadrant for infect ion and inflammation prophylaxis. Wound integrity was checked with Weck-Princess sponges and the IOL axis was once again verified to be on the correct axis. The patient was taken from the operating room in good condition and given post-op instructions.
[2024-01-18 11:06] VITALS: BP 133/67; O2SAT 100
--- NOTE | 2024-01-18 14:05 | ANESTHESIA POST OP EVALUATION ---
Anesthesia Post Eval - Post Anesthesia Eval Vitals: Last Vital Signs Temp 36.9 C 01/18/24 11:02 Pulse 65 01/18/24 11:02 Resp 16 01/18/24 11:02 BP 133/67 H 01/18/24 11:02 Pulse Ox 100 01/18/24 11:02 O2 Flow Rate CV Function Including HR & BP: Stable Pain Control: Satisfactory Nausea & Vomiting: Negative Mental Status: Baseline Respiratory Status: Airway Patent Hydration Status: Satisfactory Anesthesia Complications: None
== END 2024-01-18 08:23 | disposition home or self-care (01) ==
LOC: SDS 08:22
PROVIDERS: ATTEND Ophthalmology
DX: H25.812 Combined forms of age-related cataract, left eye (principal); I10 Essential (primary) hypertension
CPT/HCPCS: 66984; A9270; J3490; J7120; V2632; V2787

== ENCOUNTER 2024-02-22 08:29 | Day surgery (SDC) | payer MEDICARE, OTHER ==
[2024-02-22] MEDS: LACTATED RINGERS 1,000 ML IV ONE ×2 (08:39→10:18)
[2024-02-22] MEDS: KETOROLAC TROMETHAMINE 0.5% OPHTH DROPS 5 ML ONE (08:40)
[2024-02-22] MEDS: PROPARACAINE 0.5% OPHTH DROPS 15 ML ONE (08:40)
[2024-02-22] MEDS: CYCLOPENTOLATE 1% OPHTH DROPS 2 ML ONE (09:05)
[2024-02-22] MEDS: PHENYLEPHRINE 2.5% OPHTH 2 ML DROPS ONE (09:05)
[2024-02-22] MEDS ORDERED: MIDAZOLAM 2 MG/2 ML VIAL ONE (09:23)
--- NOTE | 2024-02-22 09:32 | ANESTHESIA ---
Pre-Anesthesia VS, & Labs - Diagnosis right eye senile combined cataract - Procedure right eye cataract extraction with IOL implant Vital Signs: Temp Pulse Resp BP Pulse Ox O2 Flow Rate 36.7 C 55 L 16 156/84 H 100 02/22/24 08:51 02/22/24 08:51 02/22/24 08:51 02/22/24 08:51 02/22/24 08:51 Height: 5 ft 3 in Weight (kg): 75.5 kg Body Mass Index: 29.5 BMI Classification: Overweight - NPO >8 hours - Is Patient ?: Not Applicable Home Medications and Allergies Levothyroxine Sodium [Levoxyl] 75 mg PO DAILY 05/11/14 Alendronate [Fosamax] 70 mg PO OAW 01/17/24 Lisinopril [Zestril] 10 mg PO HS 01/17/24 estradioL [Estring] 1 each VG ONCE 01/17/24 Allergies/Adverse Reactions: Allergies Allergy/AdvReac Type Severity Reaction Status Date / Time acetaminophen [From Percocet] AdvReac Severe Dizziness Verified 02/22/24 09:01 meperidine HCl * AdvReac Severe Dizziness Verified 02/22/24 09:01 [From Demerol] oxycodone [From Percocet] AdvReac Severe Dizziness Verified 02/22/24 09:01 Anes History & Medical History - Anesthetic History Anesthesia Complications: reports: Post-Operative Nausea/Vomiting - Medical History Cardiovascular: reports: Hypertension Pulmonary: reports: None Gastrointestinal: reports: None Urinary: reports: Frequency Neuro: reports: None Musculoskeletal: reports: None Endocrine/Autoimmune: reports: None Blood Disorders: reports: None Skin: reports: None Smoking Status: Never smoker Psychosocial: reports: No issues indicated History of Cancer?: Yes (breast and lymphoma(chemo)) - Surgical History Eyes Ears Nose Throat (EENT): reports: Cataracts Urologic: reports: Bladder surgery Gynecologic: reports: Mastectomy Orthopedic: reports: Knee replacement, Shoulder arthroplasty Exam General: Alert, Oriented x3, Cooperative, No acute distress Dental: WNL Mouth Openin Fingerbreadth Neck Mobility: Normal Mallampati classification: III Thyromental Distance: 4-6 cm Mental/Cognitive Status: Alert/Oriented X3, Normal for patient Plan Anesthesia Type: MAC Consent for Procedure(s) Verified and Reviewed: Yes Code Status: Attempt Resuscitation ASA classification: 3-Severe systemic disease Is this case an emergency?: No
[2024-02-22] MEDS ORDERED: fentaNYL 100 MCG/2 ML VIAL ONE (09:34)
[2024-02-22] MEDS ORDERED: TIMOLOL 0.5% OPHTH DROPS ONE (09:42)
[2024-02-22] MEDS ORDERED: TRIAMCIN/MOXIFLOX OPHTHALMIC 0.6 ML VIAL IO ONE ×2 (09:42→10:08)
[2024-02-22] MEDS ORDERED: BSS/LIDOCAINE/EPINEPHRINE 1 ML VIAL ONE (09:42)
[2024-02-22] MEDS ORDERED: EPINEPHrine 1 MG/ML AMP ONE (09:42)
[2024-02-22] MEDS ORDERED: BRIMONIDINE 0.2% OPHTH DROPS 5 ML ONE (09:42)
[2024-02-22] MEDS: TRIAMCIN/MOXIFLOX OPHTHALMIC 0.6 ML VIAL IO ONE (09:45)
[2024-02-22] MEDS: BSS/LIDOCAINE/EPINEPHRINE 1 ML SYRINGE IO ONE (09:45)
[2024-02-22] MEDS: BRIMONIDINE 0.2% OPHTH DROPS 5 ML OPTH ONE (09:45)
[2024-02-22] MEDS: TIMOLOL 0.5% OPHTH DROPS OPTH ONE (09:45)
[2024-02-22] MEDS: EPINEPHrine 1 MG/ML AMP IR ONE (09:45)
[2024-02-22] MEDS: VANCOMYCIN OPHTH (TOPICAL) 10 MG/ML SYRINGE TOP ONE (09:46)
[2024-02-22] MEDS: PROPARACAINE 0.5% OPHTH DROPS 15 ML EACHEYE ONE (09:46)
--- NOTE | 2024-02-22 10:33 | OPERATIVE REPORT ---
Operative Report - Other Other Information/Narrative: Date of Surgery: 02/22/24 Preop Dx: Visually significant cataract right eye. Cataract surgery was performed in the left eye on . Postop Dx: Same Procedure: Phacoemulsification with posterior chamber toric intraocular lens implant right eye Surgeon: Dr. 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 Best corrected visual acuity was 20/25 with glare to 20/70 vision in the right eye. Indications for surgery were: - Overall decrease in vision - Difficulty seeing street signs - Difficulty driving in low light or at night - Difficulty driving at night because of headlights from other vehicles The patient was consented at length concerning the risks and benefits of cataract surgery after which the patient expressed a desire to proceed with surgery. Operative Procedure: The patients cornea was marked in the pre-surgical area to indicate the axis for the toric intraocular lens. The patient was taken into OR#3 and placed under monitored anesthesia care. A surgical time-out was conducted confirming correct patient, correct procedure, and correct surgical site. The patient was given topical anesthesia and then prepped and draped in the usual sterile fashion. The eye was entered at the 6 and 3 oclock positions. Intracameral Shugarcaine was injected into the anterior chamber followed by a dispersive viscoelastic. A continuous-tear curvilinear capsulorhex is was performed. The nucleus was hydrodissected and phacoemulsified. The cortex was evacuated using automated infusion and aspiration. A cohesive viscoelastic was injected into the capsular bag and a 19.5 diopter multifocal toric intraocular lens was inserted into the bag and rotated to axis 020. Infusion and aspiration were used to evacuate the viscoelastic materials from the eye and the IOL was verified to remain on axis. The wounds were hydrated and the eye inflated to physiologic pressure using balanced salt solution. Approximately 0.25ml of a mixture of triamcinolone and moxifloxacin was injected trans-sclerally into the vitreous in the inferotemporal quadrant using a 30 gauge cannula. An additional 0.25ml of a mixture of triamcinolone, moxifloxacin was injected subconjunctivally in the superior quadrant for infection and inflammation prophylaxis. Wound integrity was checked with Weck-Princess sponges and the IOL axis was once again verified to be on the correct axis. The patient was taken from the operating room in good condition and given post-op instructions.
[2024-02-22 10:49] VITALS: BP 134/87; O2SAT 95
--- NOTE | 2024-02-22 10:49 | ANESTHESIA POST OP EVALUATION ---
Anesthesia Post Eval - Post Anesthesia Eval Vitals: Last Vital Signs Temp 36.4 C L 02/22/24 10:40 Pulse 71 02/22/24 10:40 Resp 14 02/22/24 10:40 BP 134/87 H 02/22/24 10:40 Pulse Ox 95 02/22/24 10:40 O2 Flow Rate CV Function Including HR & BP: Stable Pain Control: Satisfactory Nausea & Vomiting: Negative Mental Status: Baseline Respiratory Status: Airway Patent Hydration Status: Satisfactory Anesthesia Complications: None
== END 2024-02-22 08:30 | disposition home or self-care (01) ==
LOC: SDS 08:29
PROVIDERS: ATTEND Ophthalmology
DX: H25.811 Combined forms of age-related cataract, right eye (principal); E03.9 Hypothyroidism, unspecified; Z98.42 Cataract extraction status, left eye; Z85.3 Personal history of malignant neoplasm of breast
CPT/HCPCS: 66984; A9270; J3490; J7120; V2632; V2787